=== PATIENT | female | born 1935 | race African-American/Black ===

== ENCOUNTER 2018-03-31 16:31 | Emergency (ER) | payer MEDICARE, MEDICAID ==
[~2018-03-31] VITALS: Ht 162.6 cm; Wt 72.0 kg
[~2018-03-31 16:31] MED LIST: AMLO5TAB88; ASPI-867 PO; ATEN100T PO; BISM262O23; CLOP75TA16 PO; COMBIV; ESOM40CA PO; FURO40TA5; MIRT15TA6; MONT10TA24; NAPR-681; NASOI; NITR0.4T; RIVA20TA; TRAV5DRO4; VALS160T2 PO; VITA1TAB22 PO; ZOLP10TA6; [UNRECOGNIZED DRUG - CODE]
[2018-03-31] MEDS ORDERED: LORATADINE 10MG TABLET PO ONE (19:30)
[2018-03-31 19:59] VITALS: BP 151/60
== END 2018-03-31 20:02 | disposition home or self-care (01) ==
LOC: ER 19:53
DX: J69.0 Pneumonitis due to inhalation of food and vomit (principal); J45.909 Unspecified asthma, uncomplicated; E78.00 Pure hypercholesterolemia, unspecified; I10 Essential (primary) hypertension; I25.2 Old myocardial infarction; Z79.899 Other long term (current) drug therapy; Z79.82 Long term (current) use of aspirin; Z98.890 Other specified postprocedural states
CPT/HCPCS: 99284

== ENCOUNTER 2018-06-03 11:22 | Inpatient (IN) | payer MEDICARE, MEDICAID ==
[~2018-06-03] VITALS: Ht 157.5 cm; Wt 77.6 kg
[~2018-06-03 11:22] MED LIST changes: -AMLO5TAB88; +AMLO5TAB88 PO; +ASA5EC PO; -ASPI-867 PO; -FURO40TA5; +FURO40TA5 PO; -MONT10TA24; +MONT10TA24 PO
[2018-06-03 13:25] LABS: BASOPHILS % 0.2 % (0.0-2.0); EOSINOPHILS % 1.6 % (0.0-5.0); HEMATOCRIT. 33.1 % (36.0-48.0); LYMPHOCYTES % 25.1 % (20.0-50.0); MEAN CORPUSCULAR HEMOGLOBIN 28.4 pg (28.0-32.0); MEAN CORPUSCULAR VOLUME 85.9 fL (81.0-99.0); MEAN PLATELET VOLUME 8.9 fl (7.4-10.4); NEUTROPHILS % 64.1 % (40.0-76.0); PLATELET 183 x1000/uL (130-400); RED BLOOD CELL COUNT 3.86 mill/uL (4.2-5.4); RED CELL DISTRIBUTION WIDTH 14.8 % (11.6-14.6)
[2018-06-03 13:29] LABS: CHLORIDE 104 mEq/L (98-107)
[2018-06-03 13:31] LABS: INR 1.9
[2018-06-03] MEDS ORDERED: ASPIRIN 81MG TABLET PO ONE (13:45)
[2018-06-03] MEDS ORDERED: FUROSEMIDE 20MG/2ML VIAL IVP ONE (14:15)
[2018-06-03 16:30] LABS: CLARITY URINE CLEAR (CLEAR); COLOR URINE YELLOW (YELLOW); KETONES URINE NEGATIVE (NEGATIVE); LEUKOCYTE ESTERASE URINE NEGATIVE (NEGATIVE); NITRITE URINE NEGATIVE (NEGATIVE); OCCULT BLOOD URINE NEGATIVE (NEGATIVE); PROTEIN URINE NEGATIVE (NEGATIVE); SPECIFIC GRAVITY URINE 1.013 (1.005-1.030); UROBILINOGEN URINE 0.2 E.U./dL (0.2-1.0)
[2018-06-03] MEDS ORDERED: POTA15TA11 PO (16:59)
[2018-06-03] MEDS ORDERED: CHOL100022 MT (16:59)
[2018-06-03] MEDS ORDERED: NEPVIT MT (16:59)
[2018-06-03] MEDS ORDERED: TRAZ150T78 MT (16:59)
[2018-06-03] MEDS ORDERED: PANT20TA3 PO (16:59)
[2018-06-03] MEDS ORDERED: NITR0.4T SL (16:59)
[2018-06-03] MEDS ORDERED: LOSA50TA20 PO (16:59)
[2018-06-03] MEDS ORDERED: DOCU-150 PO (16:59)
[2018-06-03] MEDS ORDERED: HYDR-4001 MT (16:59)
[2018-06-03] MEDS ORDERED: ATOR40TA70 MT (16:59)
[2018-06-03] MEDS ORDERED: HYDR-4001 PO (16:59)
[2018-06-03] MEDS ORDERED: RISP1TAB26 PO (16:59)
[2018-06-03] MEDS ORDERED: FERR236T3 MT (16:59)
[2018-06-03] MEDS ORDERED: ACET-2708 PO (16:59)
[2018-06-03] MEDS ORDERED: WARF4TAB71 MT (16:59)
[2018-06-03] MEDS ORDERED: OMEG100016 PO (16:59)
[2018-06-03] MEDS ORDERED: ASCO100T12 MT (16:59)
[2018-06-03] MEDS ORDERED: HYDROMORPHONE HCL/PF 2MG/ML CPJ IV PRN (17:30)
[2018-06-03] MEDS ORDERED: CLONIDINE 0.1MG TABLET PO PRN (17:30)
[2018-06-03] MEDS ORDERED: DOCUSATE SODIUM 100MG CAPSULE PO PRN (17:30)
[2018-06-03] MEDS ORDERED: ACETAMINOPHEN 325MG TABLET PO PRN (17:30)
[2018-06-03 18:46] LABS: *AMPHETAMINES SCREEN URINE NEGATIVE (NEGATIVE); *BARBITURATES SCREEN URINE NEGATIVE (NEGATIVE); *BENZODIAZEPINES SCREEN URINE NEGATIVE (NEGATIVE)
[2018-06-03 18:47] LABS: *COCAINE SCREEN URINE NEGATIVE (NEGATIVE); CANNABINOID URINE SCREEN NEGATIVE (NEGATIVE); METHADONE URINE SCREEN NEGATIVE (NEGATIVE); OPIATES URINE SCREEN PRESUMTIVE POSITIVE (NEGATIVE); PHENCYCLIDINE URINE SCREEN NEGATIVE (NEGATIVE)
[2018-06-03] MEDS: ONDANSETRON HCL 4MG/2ML INJ IV PRN (19:41)
[2018-06-03] MEDS ORDERED: TRAZODONE HCL 100MG TABLET PO SCH (21:00)
[2018-06-03 22:00] VITALS: BP 167/64
[2018-06-03 23:00] VITALS: BP 167/64
[2018-06-04] VITALS: BP 162/83
[2018-06-04] MEDS ORDERED: IPRATROPIUM/ALBUTEROL 0.5-3(2.5)MG/3ML NEB INH SCH
[2018-06-04] MEDS: TRAZODONE HCL 100MG TABLET PO SCH ×2 (00:40→20:47)
[2018-06-04] MEDS: RISPERIDONE 1MG TABLET PO SCH ×4 (00:40→17:04)
[2018-06-04] MEDS: ATORVASTATIN CALCIUM 40MG TABLET PO SCH ×2 (00:40→20:47)
[2018-06-04] MEDS: TRAZODONE HCL 50MG TABLET PO SCH ×2 (00:41→20:47)
[2018-06-04 04:00] VITALS: BP 141/68
[2018-06-04 08:17] VITALS: BP 102/38
[2018-06-04] MEDS: FERROUS SULFATE 325MG TABLET PO SCH ×3 (08:23→17:04)
[2018-06-04] MEDS: ATENOLOL 100 MG TABLET PO SCH (08:24)
[2018-06-04] MEDS: LOSARTAN POTASSIUM 50 MG TABLET PO SCH (08:24)
[2018-06-04] MEDS: AMLODIPINE 5MG TABLET PO SCH (08:25)
[2018-06-04] MEDS ORDERED: ENOXAPARIN 30MG/0.3ML SYR SUBCUT SCH (09:00)
[2018-06-04 12:38] VITALS: BP 149/50
[2018-06-04] MEDS ORDERED: REGADENOSON 0.4 MG/5 ML IV ONE (12:45)
[2018-06-04] MEDS: ONDANSETRON HCL 4MG/2ML INJ IV PRN (12:47)
[2018-06-04 12:54] LABS: BASOPHILS % 0.3 % (0.0-2.0); EOSINOPHILS % 0.1 % (0.0-5.0); HEMATOCRIT. 35.8 % (36.0-48.0); HEMOGLOBIN. 11.8 g/dL (12.0-16.0); LYMPHOCYTES % 10.5 % (20.0-50.0); MEAN CORPUSCULAR HEMOGLOBIN 28.5 pg (28.0-32.0); MEAN CORPUSCULAR VOLUME 86.4 fL (81.0-99.0); MONOCYTES % 8.8 % (2.0-8.0); NEUTROPHILS % 80.3 % (40.0-76.0); PLATELET 185 x1000/uL (130-400); RED BLOOD CELL COUNT 4.15 mill/uL (4.2-5.4); RED CELL DISTRIBUTION WIDTH 14.2 % (11.6-14.6)
[2018-06-04 13:16] LABS: CHLORIDE 103 mEq/L (98-107)
[2018-06-04 13:26] LABS: HDL CHOLESTEROL 52 mg/dL (40-59)
[2018-06-04 13:29] LABS: LDL CHOLESTEROL 52 mg/dL (5-100)
[2018-06-04 13:36] LABS: INR 2.1; PROTHROMBIN TIME 20.6 sec (9.1-11.1)
[2018-06-04 16:18] VITALS: BP 156/58
[2018-06-04] MEDS ORDERED: WARFARIN SODIUM 4MG TABLET PO SCH (18:00)
[2018-06-04 20:00] VITALS: BP 165/67
[2018-06-04] MEDS ORDERED: TRAZODONE HCL 100MG TABLET PO SCH (21:00)
[2018-06-04] MEDS ORDERED: TRAZODONE HCL 50MG TABLET PO SCH (21:00)
[2018-06-05] VITALS (11 sets, daily range): BP systolic 52–149; BP diastolic 22–95
[2018-06-05 06:24] LABS: HEMATOCRIT. 37.9 % (36.0-48.0); HEMOGLOBIN. 12.6 g/dL (12.0-16.0); MEAN CORPUSCULAR HEMOGLOBIN 28.8 pg (28.0-32.0); MEAN CORPUSCULAR VOLUME 86.5 fL (81.0-99.0); MEAN PLATELET VOLUME 8.9 fl (7.4-10.4); PLATELET 185 x1000/uL (130-400); RED BLOOD CELL COUNT 4.38 mill/uL (4.2-5.4); RED CELL DISTRIBUTION WIDTH 14.4 % (11.6-14.6)
[2018-06-05] MEDS: ONDANSETRON HCL 4MG/2ML INJ IV PRN (06:33)
[2018-06-05 06:39] LABS: PROTHROMBIN TIME 19.4 sec (9.1-11.1)
[2018-06-05 06:54] LABS: CHLORIDE 99 mEq/L (98-107)
[2018-06-05] MEDS ORDERED: MAGNESIUM/ALUMINUM HYDROXIDE/SIMETHICONE 30ML UDC PO PRN (07:15)
[2018-06-05] MEDS ORDERED: DIGOXIN 500MCG/2ML AMP IV NR (08:00)
[2018-06-05] MEDS: FERROUS SULFATE 325MG TABLET PO SCH ×2 (08:26→13:20)
[2018-06-05] MEDS: AMLODIPINE 5MG TABLET PO SCH (08:26)
[2018-06-05] MEDS: RISPERIDONE 1MG TABLET PO SCH ×2 (08:26→13:00)
[2018-06-05] MEDS: LOSARTAN POTASSIUM 50 MG TABLET PO SCH (08:27)
[2018-06-05] MEDS: ATENOLOL 100 MG TABLET PO SCH (08:27)
[2018-06-05] MEDS ORDERED: NOREPINEPHRINE 4 MG in DEXT 5% WATER 246 ML IV PRN (09:45)
[2018-06-05] MEDS ORDERED: DIGOXIN 500MCG/2ML AMP IV PRN (10:00)
[2018-06-05] MEDS ORDERED: DIGOXIN 500MCG/2ML AMP IV SCH (10:00)
[2018-06-05 11:31] LABS: CHLORIDE 100 mEq/L (98-107)
[2018-06-05 11:35] LABS: BG BASE EXCESS -10.1 mmol/L (-2.0-2.0); BG CARBOXYHEMOGLOBIN 1.1 % (0.5-1.5); BG DEOXYHEMOGLOBIN 1.1 % (0.0-5.0); BG FRACTION INSPIRED OXYGEN 100; BG HCO3 ACT 15.9 mmol/L (22.0-26.0); BG METHEMOGLOBIN 0.2 % (0.0-1.5); BG OXYGEN SATURATION 98.9 % (92.0-98.5); BG OXYHEMOGLOBIN 97.6 % (94.0-97.0); BG PCO2 35.6 mmHg (35.0-45.0); BG PH 7.268 (7.350-7.450); BG PO2 151.6 mmHg (75.0-100.0); BG SAMPLE SITE RIGHT RADIAL; BG TIDAL VOLUME(mL) 500 mL; BG TOTAL HEMOGLOBIN 13.6 g/dL (12.0-18.0); BG VENT MODE VENT - A/C; BG VENT RATE 16 set
[2018-06-05] MEDS ORDERED: PHENYLEPHRINE 80 MG in DEXT 5% WATER 500 ML IV PRN (12:00)
[2018-06-05] MEDS ORDERED: VANCOMYCIN 2,000 MG in DEXT 5% WATER 500 ML IV NR (12:00)
[2018-06-05] MEDS ORDERED: NOREPINEPHRINE 32 MG in DEXT 5% WATER 468 ML IV PRN (12:00)
[2018-06-05] MEDS ORDERED: DOPAMINE 800MG PREMIX 250 ML IV ONE (12:12)
[2018-06-05] MEDS ORDERED: MORPHINE SULFATE 4 MG/ML CPJ (NOT FOR IM USE) IV NR (12:30)
[2018-06-05] MEDS ORDERED: PIPERACILLIN/TAZOBACTAM 2.25 G in DEXTROSE 5% WATER 50 ML IV SCH (14:00)
[2018-06-05] MEDS ORDERED: SODIUM CHLORIDE 0.9% 10ML VIAL ONE (14:35)
[2018-06-05] MEDS ORDERED: ETOMIDATE 2MG/ML 10ML VIAL IV ONE (14:35)
[2018-06-05] MEDS ORDERED: VECURONIUM BROMIDE 10 MG/VIAL IV ONE (14:35)
[2018-06-05 14:52] LABS: PLATELET ESTIMATE NORMAL
[2018-06-05] MEDS ORDERED: SODIUM BICARBONATE 7.5% 0.9 MEQ/ML 50ML SYR IV ONE (15:41)
[2018-06-05] MEDS ORDERED: EPINEPHRINE 0.1MG/ML (1:10,000) 10ML SYR ONE (15:41)
[2018-06-05] MEDS ORDERED: CALCIUM CHLORIDE 1GM/10ML SYR IV ONE (15:41)
[2018-06-05] MEDS ORDERED: MORPHINE SULFATE 100 MG in DEXT 5% WATER 90 ML IV PRN (16:00)
[2018-06-06] MEDS ORDERED: VANCOMYCIN 750 MG PREMIX 150 ML IV SCH (18:00)
== END 2018-06-05 19:30 | disposition expired | DRG 682 ==
LOC: ER 13:18 → EDBEDREQTM 14:29 → EDBEDREQ 14:29 → 6WST 14:29 → ENRESERV 20:13 → CVICU 06-05 10:02
PROVIDERS: ADMIT Internal Medicine Nephrology; ATTEND Internal Medicine Nephrology
PROC: 5A1935Z Respiratory Ventilation, Less than 24 Consecutive Hours (ICD-10-PCS; principal; 2018-06-05)
PROC: 5A12012 Performance of Cardiac Output, Single, Manual (ICD-10-PCS; 2018-06-05)
PROC: 0BH18EZ Insertion of Endotracheal Airway into Trachea, Via Natural or Artificial Opening Endoscopic (ICD-10-PCS; 2018-06-05)
DX: N17.9 Acute kidney failure, unspecified (principal); J96.00 Acute respiratory failure, unspecified whether with hypoxia or hypercapnia; I48.1 Persistent atrial fibrillation; D68.9 Coagulation defect, unspecified; I48.92 Unspecified atrial flutter; I50.40 Unspecified combined systolic (congestive) and diastolic (congestive) heart failure; R57.9 Shock, unspecified; R07.9 Chest pain, unspecified; I46.9 Cardiac arrest, cause unspecified; I48.2 Chronic atrial fibrillation; I45.10 Unspecified right bundle-branch block; I25.2 Old myocardial infarction; I25.10 Atherosclerotic heart disease of native coronary artery without angina pectoris; D64.9 Anemia, unspecified; F31.9 Bipolar disorder, unspecified; J44.9 Chronic obstructive pulmonary disease, unspecified; E78.5 Hyperlipidemia, unspecified; I11.0 Hypertensive heart disease with heart failure; Z66 Do not resuscitate; Z51.5 Encounter for palliative care; K21.9 Gastro-esophageal reflux disease without esophagitis; I35.0 Nonrheumatic aortic (valve) stenosis; E78.00 Pure hypercholesterolemia, unspecified; Z79.01 Long term (current) use of anticoagulants; Z85.028 Personal history of other malignant neoplasm of stomach; Z95.1 Presence of aortocoronary bypass graft; Z95.5 Presence of coronary angioplasty implant and graft
CPT/HCPCS: 36415; 36600; 71045; 78582; 80048; 80061; 80305; 82375; 82805; 82962; 83735; 83880; 84484; 86850; 86900; 93005; 93306; 93970; 96374; 96375; 97162; 97166; 99285; A4216; A9558; J1160; J1265; J1650; J1940; J2270; J2405; J2543; J3370; J3490; J7050; J7060; J7620; A4315